=== PATIENT | male | born 1960 | race Caucasian/White ===

== ENCOUNTER 2024-05-02 16:56 | Emergency (ER) | payer OTHER, SELFPAY ==
[2024-05-02] MEDS ORDERED: Sodium Chloride 0.9% 1,000 ML ONE (17:53)
[2024-05-02 17:54] LABS: #Basophils 0.1 thou/uL (0.0-0.2); #Eosinophils 0.1 thou/uL (0.0-0.7); #Lymphocytes 2.2 thou/uL (1.20-3.40); #Monocytes 0.5 thou/uL (0.11-0.59); %Basophils 1.1 % (0.0-1.0); %Eosinophils 1.2 % (0.0-10.0); %Lymphocytes 20.3 % (21.0-51.0); %Monocytes 4.1 % (0.0-10.0); %Neutrophils 73.3 % (42.0-75.0); Hematocrit 52.7 % (42.0-52.0); Hemoglobin 16.4 g/dL (14.0-18.0); Mean Corpuscular HGB CONC 31.1 g/dL (32.0-36.0); Mean Corpuscular Hemoglobin 26.9 pg (27.0-31.0); Mean Corpuscular Volume 86.6 fl (78.0-98.0); Mean Platelet Volume 8.1 fL (7.4-10.4); Platelet Count 464 10x3/uL (130-400); RBC Distribution Width 12.4 % (11.5-14.5); Red Blood Cell (RBC) Count 6.09 mill/uL (4.70-6.10); White Blood Cell (WBC) Count 10.9 10x3/uL (4.8-10.8)
[2024-05-02] MEDS ORDERED: Insulin Regular, Human 100 UNIT/ML 10 ML VIAL ONE (18:10)
[2024-05-02 18:12] LABS: ALT (SGPT) 16 U/L (8-55); AST (SGOT) 11 U/L (5-34); Albumin 3.9 g/dL (3.4-4.8); Alkaline Phosphatase 169 U/L (40-110); Anion Gap 18 mmol/L (10-20); BUN (Urea Nitrogen) 23 mg/dL (8.4-25.7); Bilirubin, Total 0.5 mg/dL (0.2-1.2); Calc. Creatinine Clearance 0 mL/min (70-130); Calcium 10.2 mg/dL (7.8-10.44); Carbon Dioxide 25 mmol/L (23-31); Chloride 98 mmol/L (98-107); Estimated GFR 39; Globulin 5.3 g/dL (2.4-3.5); Potassium 4.5 mmol/L (3.5-5.1); Protein, Total 9.2 g/dL (5.8-8.1); Sodium 136 mmol/L (136-145)
[2024-05-02 18:26] LABS: Critical Call Chemistry NUR.AH3@1827; Glucose 472 mg/dL (80-115)
[2024-05-02 19:51] LABS: Glucose 274 mg/dL (80-115)
== END 2024-05-02 20:20 ==
LOC: NAV ERS 16:56
DX: S91.301A Unspecified open wound, right foot, initial encounter (principal); E11.65 Type 2 diabetes mellitus with hyperglycemia; Z89.421 Acquired absence of other right toe(s); E11.9 Type 2 diabetes mellitus without complications; F17.290 Nicotine dependence, other tobacco product, uncomplicated; X58.XXXA Exposure to other specified factors, initial encounter
CPT/HCPCS: 36415; 36416; 80053; 83605; 85025; 96374; J1815; J7030